=== PATIENT | female | born 1965 | race Caucasian/White ===

== ENCOUNTER 2018-06-10 07:42 | Day surgery (SDC) | payer OTHER ==
[~2018-06-10] VITALS: Ht 165.1 cm; Wt 120.2 kg
[~2018-06-10 07:42] MED LIST: ACID REDUCER150 MG PO; DIOVAN160 MG PO; HUMALOG100 UNIT/1 SC; HUMALOG100 UNIT/2 SQ; LASIX20 MG PO; LO-DOSE ASPIRIN81 M2 PO; METFORMIN HCL1000 M3 PO; SUPER B COMPL400 MCG PO; SYNTHROID175 MCG PO; TOUJEO SOL300 UNIT/1 SC; TRICOR145 MG PO; VITAMIN D32000 UNI1 PO
[2018-06-10] MEDS ORDERED: CELEXA40 MG PO (08:43)
[2018-06-10 08:58] VITALS: BP 128/74
[2018-06-10] MEDS ORDERED: NORCO 5/3251 TABLET PO ×2 (09:31→12:46)
[2018-06-10 13:59] VITALS: BP 104/59
[2018-06-10 14:45] VITALS: BP 109/57
[2018-06-10 15:27] VITALS: BP 132/69
== END 2018-06-10 15:36 | disposition home or self-care (01) ==
LOC: SDC 07:42
PROVIDERS: Surgery
PROC: 0WQF4ZZ Repair Abdominal Wall, Percutaneous Endoscopic Approach (ICD-10-PCS; principal; 2018-06-10)
DX: K43.0 Incisional hernia with obstruction, without gangrene (principal); I10 Essential (primary) hypertension; E11.9 Type 2 diabetes mellitus without complications; E78.4 Other hyperlipidemia; G47.30 Sleep apnea, unspecified; E03.9 Hypothyroidism, unspecified; F41.1 Generalized anxiety disorder; Z79.4 Long term (current) use of insulin; Z90.710 Acquired absence of both cervix and uterus; Z79.82 Long term (current) use of aspirin; Z87.891 Personal history of nicotine dependence
CPT/HCPCS: 82948; 93005; C1781; J0330; J0690; J1100; J1170; J2405; J2710; J3010; J7643; S0020